=== PATIENT | female | born 1965 | race Caucasian/White ===

== ENCOUNTER 2016-05-26 19:08 | Emergency (ER) | payer OTHER ==
[~2016-05-26] VITALS: Ht 165.1 cm; Wt 95.5 kg
[2016-05-26 19:49] VITALS: Ht 165.1 cm; Wt 95.5 kg
[2016-05-26] MEDS ORDERED: KETOROLAC 30 MG INJ IM STA (20:30)
--- NOTE | 2016-05-26 20:46 | ERD ---
ER Documentation Chief Complaint Date/Time DATE: 05/26/16 TIME: 20:43 Chief Complaint Bilateral Knee pain x2 weeks HPI This a 50-year-old female who presents to the emergency department today complaining of bilateral knee pain. She is here with her friend and daughter. States that she has had right knee pain for the past 4 weeks and has had left knee pain for the past 2 weeks. States she has pain going from sitting to standing. States she has significant amount of pain with walking. She has taken ibuprofen with no improvement in pain. States she has "cracking" in her knee. Denies any fevers or chills. Denies any trauma. ROS All systems reviewed and are negative except as per history of present illness. Medications Home Meds Active Scripts Acetaminophen* (Tylophen*) 500 Mg Capsule, 1 CAP PO Q6H Y for PAIN AND OR ELEVATED TEMP, #30 CAP Prov:GORDON LUJAN PA-C 05/26/16 Naproxen* (Naprosyn*) 500 Mg Tablet, 500 MG PO BID Y for PAIN AND/OR INFLAMMATION, #30 TAB Prov:GORDON LUJAN PA-C 05/26/16 Tramadol HCl (Tramadol HCl) 50 Mg Tablet, 50 MG PO Q4 Y for PAIN, #20 TAB Prov:GORDON LUJAN PA-C 05/26/16 Allergies Allergies: Coded Allergies: No Known Allergy (Unverified , 05/26/16) PMhx/Soc History of Surgery: Yes (caesarian section) Anesthesia Reaction: No Hx Neurological Disorder: No Hx Respiratory Disorders: No Hx Cardiac Disorders: No Hx Psychiatric Problems: No Hx Miscellaneous Medical Probl: No Hx Alcohol Use: No Hx Substance Use: No Hx Tobacco Use: No Smoking Status: Never smoker Physical Exam Vitals Vital Signs Date Time Temp Pulse Resp B/P Pulse Ox O2 Delivery O2 Flow Rate FiO2 05/26/16 19:49 98.9 74 20 144/84 100 Physical Exam Const: Obese, sitting in wheelchair Head: Atraumatic Eyes: Normal Conjunctiva ENT: Normal External Ears, Nose and Mouth. Neck: Full range of motion..~ No meningismus. Resp: Clear to auscultation bilaterally Cardio: Regular rate and rhythm, no murmurs Skin: No petechiae or rashes MSK: Bilateral knees with no obvious deformity. No effusion. No ecchymosis. Full active range of motion. Diffusely tender to palpation anterior aspect of knee. Pulses 2+. Distal neurovascular intact. Neur: Awake and alert Psych: Normal Mood and Affect Results 24 hrs Current Medications Medications (Trade) Dose Ordered Sig/Isabelle Route PRN Reason Start Time Stop Time Status Last Admin Dose Admin Ketorolac Tromethamine (Toradol) 30 mg ONCE STAT IM 05/26/16 20:30 05/26/16 20:33 DC 05/26/16 21:10 DIAGNOSTIC IMAGING REPORT Patient: ODILON LOCKWOOD : 1965 Age: 50 Sex: F MR #: [id number] DOS: 05/26/16 0000 Ordering MD: GORDON LUJAN PA-C Location: [facility] Room/Bed: PROCEDURE: XR Knee. CLINICAL INDICATION: pain x 1 month. unable to ambulate TECHNIQUE: AP, tunnel, and oblique view of the bilateral knees were obtained. [place] patellar views obtained as well. The images reviewed on a PACS workstation. COMPARISON: None. FINDINGS: The bones appear intact, with no evidence of fracture, erosion, demineralization , or dislocation. The alignment of the femorotibial and patellofemoral joints appears normal. There is bilateral moderate medial femoral tibial compartment joint space narrowing, slightly more prominent on the left. There is a possible small left knee effusion. IMPRESSION: 1. Bilateral moderate medial femoral tibial compartment joint space narrowing. This appears slightly more prominent on the left. 2. Questionable small left knee effusion. RPTAT: HBST .Low Almeida MD, MD Date Time Electronically viewed and signed by .Low Almeida MD, MD on 05/26/2016 21:22 .T/ CC: GORDON LUJAN PA-C Procedures/MDM This 50-year-old female who presents to the emergency department today complaining of bilateral knee pain. Patient was sitting in a wheelchair and stated that she was having a significant pain with walking. She was reporting cracking and pain all along the anterior aspect of her knee and her patella. This is patient's first visit to the emergency department and given her significant amount of pain as well as her inability to weight-bear comfortably I did obtain images per Per the radiology report images of the bilateral knees show bilateral moderate medial femoral tibial compartment joint space narrowing. This is slightly more prominent on the left. There is a questionable small left knee effusion. There is no evidence of fracture, erosion or dislocation Patient symptoms at this time is consistent with degenerative changes and arthritis versus patellofemoral syndrome Patient is afebrile and otherwise well-appearing. There is no erythema or warmth. Low suspicion for septic joint or gout. There has been no trauma. Low suspicion for acute fracture dislocation. Patient was given Toradol here in the emergency department. She will be given a short course of tramadol, Naprosyn and Tylenol for home. She was instructed to follow-up with her primary care physician for further evaluation by orthopedic special I have given her a list of resources. She was also given crutches to help ambulate. At this time the patient is stable for discharge and outpatient management. Patient should follow up with their PCP in the next 1-2 days for referral to orthopedics or physical therapy. They may return to the emergency department sooner for any persistent or worsening of symptoms. Patient understood and agreed with the plan. Departure Diagnosis: Primary Impression: Knee pain Laterality: bilateral Chronicity: unspecified Qualified Code: M25.561 - Pain in both knees, unspecified chronicity Condition: Fair GORDON LUJAN PA-C May 26, 2016 20:46
--- NOTE | 2016-05-26 21:23 | RADRPT ---
PROCEDURE: XR Knee. CLINICAL INDICATION: pain x 1 month. unable to ambulate TECHNIQUE: AP, tunnel, and oblique view of the bilateral knees were obtained. [place] patellar vie ws obtained as well. The images reviewed on a PACS workstation. COMPARISON: None. FINDINGS: The bones appear intact, with no evidence of fracture, erosion, demineralization, or dislocation. Th e alignment of the femorotibial and patellofemoral joints appears normal. There is bilateral moderat e medial femoral tibial compartment joint space narrowing, slightly more prominent on the left. Ther e is a possible small left knee effusion. IMPRESSION: 1. Bilateral moderate medial femoral tibial compartment joint space narrowing. This appears slight ly more prominent on the left. 2. Questionable small left knee effusion. RPTAT: HBST .Low Almeida MD, Date Time Electronically viewed and signed by .Low Almeida MD, on 05/26/2016 21:22 .T/
[2016-05-26] MEDS ORDERED: NAPR-260 PO (21:56)
[2016-05-26] MEDS ORDERED: TRAM50TA2 PO (21:56)
[2016-05-26] MEDS ORDERED: ACET500C5 PO (21:57)
[2016-05-26 22:12] VITALS: BP 138/80; PULSE 76; RESP 20; TEMP 98.5
== END 2016-05-26 22:13 | disposition home or self-care (01) ==
LOC: FTE 19:08
DX: M25.561 Pain in right knee (principal); M25.562 Pain in left knee
CPT/HCPCS: 73564; J1885; 96372

== ENCOUNTER 2018-05-11 10:24 | Emergency (ER) | payer OTHER ==
[~2018-05-11] VITALS: Ht 165.1 cm; Wt 99.3 kg
[~2018-05-11 10:24] MED LIST: ACET500C5 PO; NAPR-985 PO; TRAM50TA2 PO
[2018-05-11 11:01] VITALS: BP 154/74; PULSE 84; RESP 20; Ht 165.1 cm; Wt 99.3 kg
[2018-05-11] MEDS ORDERED: KETOROLAC 30 MG INJ IM STA (13:10)
[2018-05-11] MEDS ORDERED: METHOCARBAMOL 750 MG TAB PO ONE (13:30)
[2018-05-11] MEDS ORDERED: DEXAMETHASONE 10 MG/ML 1 ML INJ IM ONE (13:30)
[2018-05-11] MEDS ORDERED: IBUP-1542 PO (15:05)
[2018-05-11] MEDS ORDERED: ACET-141 PO (15:05)
[2018-05-11] MEDS ORDERED: METH750T93 PO (15:05)
--- NOTE | 2018-05-11 15:06 | ERD ---
ER Documentation Chief Complaint Chief Complaint Complains of back pain radiates to the leg ROS All systems reviewed and are negative except as per history of present illness. Medications Home Meds Active Scripts Methocarbamol* (Robaxin*) 750 Mg Tablet, 750 MG PO TID PRN for MUSCLE SPASMS, #30 TAB Prov:KELLE SCHUSTER DO 05/11/18 Acetaminophen* (Acetaminophen*) 500 MG Extra Strength Tablet, 500 MG PO Q4H PRN for PAIN AND OR ELEVATED TEMP, #30 TAB Prov:KELLE SCHUSTER DO 05/11/18 Ibuprofen* (Motrin*) 600 Mg Tab, 600 MG PO Q6H PRN for PAIN AND OR ELEVATED TEMP, #30 TAB Prov:KELLE SCHUSTER DO 05/11/18 Acetaminophen* (Tylophen*) 500 Mg Capsule, 1 CAP PO Q6H PRN for PAIN AND OR ELEVATED TEMP, #30 CAP Prov:GORDON LUJAN PA-C 05/26/16 Naproxen* (Naprosyn*) 500 Mg Tablet, 500 MG PO BID PRN for PAIN AND/OR INFLAMMATION, #30 TAB Prov:GORDON LUJAN PA-C 05/26/16 Tramadol HCl (Tramadol HCl) 50 Mg Tablet, 50 MG PO Q4 PRN for PAIN, #20 TAB Prov:GORDON LUJANC 05/26/16 Allergies Allergies: Coded Allergies: No Known Allergy (Unverified , 05/26/16) PMhx/Soc History of Surgery: Yes (caesarian section) Anesthesia Reaction: No Hx Neurological Disorder: No Hx Respiratory Disorders: No Hx Cardiac Disorders: No Hx Psychiatric Problems: No Hx Miscellaneous Medical Probl: Yes (Arthritis,HTN) Hx Alcohol Use: No Hx Substance Use: No Hx Tobacco Use: No Smoking Status: Never smoker Physical Exam Vitals Vital Signs Date Temp Pulse Resp B/P (MAP) Pulse Ox O2 O2 Flow FiO2 Time Delivery Rate 05/11/18 97.0 84 20 154/74 99 11:01 (100) Physical Exam Const: No acute distress Head: Atraumatic Eyes: Normal Conjunctiva ENT: Normal External Ears, Nose and Mouth. Neck: Full range of motion. No meningismus. Resp: Clear to auscultation bilaterally Cardio: Regular rate and rhythm, no murmurs Abd: Soft, non tender, non distended. Normal bowel sounds Skin: No petechiae or rashes Back: No midline or flank tenderness Ext: No cyanosis, or edema Neur: Awake and alert Psych: Normal Mood and Affect Results 24 hrs Laboratory Tests Test 05/11/18 13:21 05/11/18 13:22 Bedside Urine pH (LAB) 8.0 Bedside Urine Protein (LAB) Negative Bedside Urine Glucose (UA) Negative Bedside Urine Ketones (LAB) Negative Bedside Urine Blood Negative Bedside Urine Nitrite (LAB) Negative Bedside Urine Leukocyte Esterase (L Negative POC Beta HCG, Qualitative NEGATIVE Current Medications Medications Dose Sig/Isabelle Start Time Status Last (Trade) Ordered Route PRN Stop Time Admin Dose Reason Admin Ketorolac 30 mg ONCE STAT 05/11/18 DC 05/11/18 Tromethamine IM 13:10 13:26 (Toradol) 05/11/18 13:12 10 mg ONCE ONCE 05/11/18 DC 05/11/18 Dexamethasone IM 13:30 13:26 (Decadron) 05/11/18 13:31 750 mg ONCE ONCE 05/11/18 DC 05/11/18 Methocarbamol PO 13:30 13:25 (Robaxin) 05/11/18 13:31 Departure Diagnosis: Primary Impression: Back pain Condition: Fair Patient Instructions: Back Pain (Acute Or Chronic) Referrals: [facility] YOU HAVE RECEIVED A MEDICAL SCREENING EXAM AND THE RESULTS INDICATE THAT YOU DO NOT HAVE A CONDITION THAT REQUIRES URGENT TREATMENT IN THE EMERGENCY DEPARTMENT. FURTHER EVALUATION AND TREATMENT OF YOUR CONDITION CAN WAIT UNTIL YOU ARE SEEN IN YOUR DOCTORS OFFICE WITHIN THE NEXT 1-2 DAYS. IT IS YOUR RESPONSIBILITY TO MAKE AN APPOINTMENT FOR FOLOW-UP CARE. IF YOU HAVE A PRIMARY DOCTOR --you should call your primary doctor and schedule an appointment IF YOU DO NOT HAVE A PRIMARY DOCTOR YOU CAN CALL OUR PHYSICIAN REFERRAL HOTLINE AT IF YOU CAN NOT AFFORD TO SEE A PHYSICIAN YOU CAN CHOSE FROM THE FOLLOWING [facility] [address] [facility] [address] [facility] [address] [facility] [address] [facility] [address] [facility]. [facility] [address] Additional Instructions: Call your primary care doctor TOMORROW for an appointment during the next 1-2 days.See the doctor sooner or return here if your condition worsens before your appointment time. Llame al doctor MAANA y francheska kristne SERA PARA DENTRO DE 1-2 GARNICA.Dgale a la secretaria que nosotros le instruimos hacer esta sera.Avise o llame si alarcon condicin se empeora antes de la sera. Regresa aqui si peor o no mejor. KELLE SCHUSTER DO May 11, 2018 15:06
== END 2018-05-11 15:13 | disposition home or self-care (01) ==
LOC: FTE 10:24
DX: M54.9 Dorsalgia, unspecified (principal); I10 Essential (primary) hypertension
CPT/HCPCS: 72100; 81003; 81025; 96372; J1100; J1885; Z7502; Z7610